=== PATIENT | female | born 1985 | race Caucasian/White ===

== ENCOUNTER 2023-11-25 17:41 | Emergency (ER) | payer BC ==
[~2023-11-25] VITALS: Ht 177.8 cm; Wt 104.3 kg
[2023-11-25] MEDS ORDERED: INDERAL XL120 MG PO (18:28)
[2023-11-25] MEDS ORDERED: GRALISE600 MG PO (18:28)
[2023-11-25] MEDS ORDERED: ADDERALL 15 MG15 MG PO (18:29)
== END 2023-11-26 02:25 | disposition home or self-care (01) ==
LOC: ER 17:42
DX: S81.021A Laceration with foreign body, right knee, initial encounter (principal); W18.39XA Other fall on same level, initial encounter; Y93.89 Activity, other specified; Y92.832 Beach as the place of occurrence of the external cause; Z88.2 Allergy status to sulfonamides; Z88.8 Allergy status to other drugs, medicaments and biological substances